=== PATIENT | male | born 1940 | race Caucasian/White ===

== ENCOUNTER 2016-11-28 09:53 | Day surgery (SDC) | payer MEDICARE, OTHER ==
--- NOTE | 2016-11-28 11:10 | OR ---
Anesthesia Pre Procedure Eval Date of Service: 11/28/16 Pre Procedure Evaluation: Last Vital Signs Temp 36.7 C 11/28/16 10:07 Pulse 76 11/28/16 10:07 Resp 16 11/28/16 10:07 BP 151/72 11/28/16 10:07 Pulse Ox 94 11/28/16 10:07 Anesthesia Pre Procedure Evaluation DATE: 11/28/2016. TIME: 03/03/2004 INDICATIONS: Spinal stenosis, bulging disc, anterolisthesis L5 on S1. PAST MEDICAL HISTORY: Is a 76-year-old male with a history of low back pain. He has had epidural steroid injections in the past with little relief. He presents today with complaints of nonradiating low back pain. EXAM: MRI report and films were reviewed. Pain is 0/10 on pain scale at present. ASSESSMENT OF MEDICAL STATUS: O.K. to proceed with JENNIE. PLANNED PROCEDURE: Fluoroscopic guided epidural steroid injection L5-S1. Home Medications: HOME MEDICATIONS Enalapril/Hydrochlorothiazide [Enalapril-Hctz 5-12.5 mg Tab] 1 each PO DAILY [Last Taken Unknown] Multivitamins [Multivitamin Mami] 1 cap PO DAILY 11/25/16 [Last Taken Unknown] Nitroglycerin [Nitrostat] 0.4 mg SL [id number] PRN 11/25/16 [Last Taken Unknown] Simvastatin [Zocor] 20 mg PO HS 11/25/16 [Last Taken Unknown] traMADol HCL [Ultram] 50 mg PO Q4H PRN 11/25/16 [Last Taken Unknown]
[2016-11-28] MEDS ORDERED: DEXAMETHASONE SOD PHOSPHATE 10 MG/ML VIAL IJ ONE (11:23)
[2016-11-28] MEDS ORDERED: NORMAL SALINE 20 ML VIAL IJ ONE (11:24)
[2016-11-28] MEDS ORDERED: IOPAMIDOL 20 ML VIAL IJ ONE (11:24)
--- NOTE | 2016-11-28 11:43 | OR ---
Anesthesia Procedure Note - Anesthesia Procedure Note Date of Service: 11/28/16 Narrative: Vital Signs - Last Taken Temp 36.7 C 11/28/16 11:35 Pulse 69 11/28/16 11:35 Resp 16 11/28/16 11:35 BP 147/82 11/28/16 11:35 Pulse Ox 96 11/28/16 11:35 O2 Oxygen Delivery Method Room Air 11/28/16 11:41 ANESTHESIA PROCEDURE NOTE Date of Procedure: 11/28/2016. Time of procedure: 1120. Performed by: Lucas Esat CRNA Boning Room Worker: None. Preprocedure diagnosis: Spinal stenosis, disc bulge, anterolisthesis L5 on S1. Post procedure diagnosis: Same. Procedure: Fluoroscopic guided epidural Steroid Injection L5-S1. Indications: This is a 76-year-old male with a history of nonradiating chronic low back pain. He has had epidural steroid injections in the past with minimal relief. Potential risks and benefits of the procedure were discussed with the patient and consent was obtained. Findings: See below. Details of the procedure: The patient was brought back to operating room #3. The patient was then placed in the prone position to comfort. DuraPrep was applied to the patient's back. Patient was then draped in sterile fashion. Lidocaine 1% was infiltrated to the skin and subcutaneous tissues at the level of the L5-S1 interspace using fluoroscopic guidance. The epidural space was identified using a 20-gauge Tuohy needle with [id number] technique. 1 mL of Isovue contrast was then injected after negative aspiration for blood and CSF. The epidural space was outlined in the AP and lateral views. Preservative free Decadron 10 mg + 5 mL of preservative-free normal saline was administered to the epidural space after negative aspiration for blood and CSF. The Tuohy needle was removed intact. A Band-Aid was applied to the patient's back. The patient was then placed in a supine position for 5 minutes before returning to the ambulatory surgical unit. Total fluoroscopy time: 17.4 seconds. Cumulative dose: 4.11 mGy. EBL: Minimal. Fluids: N/A. Specimen: N/A. Post procedure condition: The patient tolerated the procedure well. No complications were noted. No motor weaknesses or paresthesias were noted upon discharge. Thank you for this consultation. Lucas East CRNA
[2016-11-28 12:06] VITALS: BP 142/71
== END 2016-11-28 09:54 | disposition home or self-care (01) ==
LOC: AMB 09:53
PROVIDERS: ATTEND Internal Medicine
PROC: 3E0S3BZ Introduction of Anesthetic Agent into Epidural Space, Percutaneous Approach (ICD-10-PCS; 2016-11-28)
PROC: 3E0S33Z Introduction of Anti-inflammatory into Epidural Space, Percutaneous Approach (ICD-10-PCS; principal; 2016-11-28 11:00)
DX: M51.27 Other intervertebral disc displacement, lumbosacral region (principal); M48.06 Spinal stenosis, lumbar region; Z68.22 Body mass index [BMI] 22.0-22.9, adult

== ENCOUNTER 2017-05-16 07:52 | Day surgery (SDC) | payer MEDICARE, MEDICAID ==
[~2017-05-16 07:52] MED LIST: RINGER'S SOLUTION,LACTATED 1,000 ML IV PRN; ceFAZolin SODIUM 1 GM VIAL IV PRN
[2017-05-16] MEDS ORDERED: BUPIVACAINE HCL 50 ML VIAL IJ ONE ×2 (10:05)
[2017-05-16] MEDS ORDERED: RINGER'S SOLUTION,LACTATED 1,000 ML IV ONE ×2 (10:57)
--- NOTE | 2017-05-16 11:52 | OR ---
Operative Report - Dictated Report Narrative: Date: 05/16/2017 Physician: Roe Browne M.D. Golf Cart Maker: None Preoperative diagnosis: Right carpal and cubital tunnel syndrome Postoperative diagnosis: Right carpal and cubital tunnel syndrome Procedure: Right endoscopic carpal tunnel release and ulnar nerve decompression at the cubital tunnel Anesthesia: General Plus local Complications: None Estimated blood loss: Minimal Tourniquet time: 27 Minutes at 250 mmHg Specimens: None Retained implants: None Drains: None Indications: Mr. Ross Is a 76-year-old gentleman who has been followed in my clinic with complaints of cubital and carpal tunnel syndrome. Physical exam as well as diagnostic testing showed compression of the ulnar and median nerve compatible with cubital and carpal tunnel syndrome. Conservative measures had failed including, but not limited to, activity modification, medications, and/or splinting. The risks, benefits, and alternatives were discussed in clinic. The risks being bleeding, infection, nerve, tendon, blood vessel injury, persistent pain, wound competitions, weakness, palm pain, need for additional procedures, and persistent symptoms. Consent was obtained in the clinic. Procedure: After marking the correct extremity in the preoperative holding area, a timeout was performed in the operating room. IV antibiotics consisting of Ancef were administered prior to the procedure. A well-padded tourniquet was applied to the operative upper arm. The arm was exsanguinated and the tourniquet was inflated to 250 mmHg. 0.5% Marcaine without epinephrine was infused into the projected incision site over the medial elbow and the portal sites at the wrist. Using loupe magnification, a transverse incision was made in the proximal wrist flexion crease just ulnar to the ulnar to the palmaris longus tendon or in line with approximately the ring finger. Blunt dissection and hemostasis with bipolar cautery was utilized down to the forearm fascia. The forearm fascia was split longitudinally just ulnar to the palmaris longus exposing the entry into the carpal tunnel. A Hobart was placed under the transverse carpal ligament elevating the soft tissues under the dorsal aspect of the transverse carpal ligament. This was confirmed to be under the transverse carpal ligament based on the corrugated nature of the tissue. Once we had removed soft tissues from the transverse carpal ligament, a blunt trocar and cannula was introduced under the transverse carpal ligament exiting the palm through a chelsey incision. The hand was then placed in an extension holding device and the camera was introduced into the cannula. A probe was utilized in order to ensure that all soft tissues were elevated off the dorsal aspect of the transverse carpal ligament and ensuring that all tissues were running transversely. No vascular or neurologic tissues were visualized. The push, followed by probe, followed by hook blades was utilized to transect the distal one half of the transverse carpal ligament. This allowed for ingress of fat. The camera was then placed distally looking proximally, and the proximal one half of the transverse carpal ligament was transected using the hook blade. This again allowed for ingress of fat. The probe blade was utilized in order to release any additional remaining fibers. Once it was felt that the transverse carpal ligament was completely transected, the blunt trocar was reintroduced into the trocar and removed in whole. A Ragnell was utilized in order to visualize the carpal tunnel ensuring that the transverse carpal ligament was completely released using a Hobart. The distal forearm fascia was released ensuring that the median nerve was completely decompressed utilizing tenotomy scissors. A light compressive dressing was then placed and attention was turned to the elbow. Next, a longitudinal incision centered over the cubital tunnel was made approximately 6 centimeters in length. Blunt dissection was carried down to the subcutaneous tissues using bipolar cautery for hemostasis. Care was taken to protect the identified underlying cutaneous nerves. The ulnar nerve was identified as it passed through the medial intermuscular septum along the distal triceps. A release of the canal in this area as the ulnar nerve passed anterior to posterior was performed in order to decompress the nerve at this site. The nerve was dissected releasing the overlying soft tissues while maintaining the vascularity of the nerve down to the area of the medial epicondyles and Thomason's ligament. The nerve was completely decompressed as it passed posterior to the medial condyle and was followed into the flexor carpi ulnaris. The deep fascia of the flexor carpi ulnaris muscle was released in order to decompress the nerve at this site. The first branch of the ulnar nerve was protected as well as any identified recurrent branches. The elbow was placed through range of motion and it was noted that the nerve was not unstable nor did it appear to be under tension as it passed behind the medial epicondyle. For this reason it was not felt that a transposition was not necessary. Once it was felt that we had completely released the compressive structures on the ulnar nerve, the wound was thoroughly irrigated and the tourniquet was deflated. Fluid passed freely through the carpal tunnel wounds. Hemostasis was obtained at the elbow and wrist using pressure and bipolar cautery. Once adequate hemostasis was in place, additional local anesthetic was placed in the skin edges, and the subcutaneous tissue at the elbow was closed with interrupted Vicryl. The skin and portal sites were closed with 4-0 nylon and sterile dressings consisting of Xeroform, 4 x 4, soft roll, a plaster short arm dorsal wrist splint, and a forearm Santiago wrap was applied. All sponge, needle, blade, and instrument counts were correct prior to closing the wounds. The patient was awoken and transferred to the postanesthesia care unit in stable condition.
[2017-05-16 12:53] VITALS: BP 140/64
== END 2017-05-16 07:53 | disposition home or self-care (01) ==
LOC: AMB 07:52
PROVIDERS: ATTEND Orthopaedic Surgery
PROC: 01N54ZZ Release Median Nerve, Percutaneous Endoscopic Approach (ICD-10-PCS; principal; 2017-05-16)
PROC: 01N40ZZ Release Ulnar Nerve, Open Approach (ICD-10-PCS; 2017-05-16)
DX: G56.01 Carpal tunnel syndrome, right upper limb (principal); G56.21 Lesion of ulnar nerve, right upper limb